=== PATIENT | male | born 1955 | race Hispanic/Latino ===

== ENCOUNTER 2020-04-24 14:34 | Outpatient (CLI) | payer OTHER ==
--- NOTE | 2020-04-24 16:00 | MRI ---
MRI of thebrain: 04/24/2020 COMPARISON:None available HISTORY:Sensorineural hearing loss bilaterally, dizziness with pain and popping within the left ear TECHNIQUE: Multiplanar multisequence MR imaging of thebrain with and without contrast using the inter nal auditory canal protocol Findings:The diffusion weighted imaging demonstrates no evidence for acute infarction. The paranasal sinuses and mastoid air cells demonstrate grossly unremarkable MR appearance. Arterial flow voids at the axial level of the skull base appear grossly unremarkable on the T2-weighted imaging. Regional bone marrow signal intensity within normal limits. There is no midline shift, mass effect, or ventricular enlargement. Thin section T2 weighted imaging through the skull base demonstrates normal signal intensity in the r egion of the internal auditory canal, cochlea, vestibule, and semicircular canals bilaterally. Thin section postcontrast imaging demonstrates no abnormal enhancement involving the IAC, cochlea, ve stibule, or semicircular canals on either side. The postcontrast imaging demonstrates no abnormal enhancement within the brain parenchyma. IMPRESSION:Unremarkable contrast enhanced brain MRI using the internal auditory canal protocol.
== END 2020-04-24 14:35 | disposition home or self-care (01) ==
LOC: BICMRI 14:34
PROVIDERS: ATTEND Otolaryngology Plastic Surgery within the Head & Neck
DX: H90.3 Sensorineural hearing loss, bilateral (principal); R42 Dizziness and giddiness; H93.12 Tinnitus, left ear
CPT/HCPCS: 70553; 82565